=== PATIENT | male | born 1970 | race Caucasian/White ===

== ENCOUNTER 2021-10-30 06:49 | Day surgery (SDC) | payer BC ==
[2021-10-30] VITALS (81 sets, daily range): BP systolic 118–147; BP diastolic 76–87; PULSE 46–81; TEMP 98.2; O2SAT 89–99
[~2021-10-30] VITALS: Ht 177.8 cm; Wt 98.2 kg
[2021-10-30 07:27] LABS: BASO # 0.1 K/mm3 (0.0-0.2); BASO % 0.9 % (0.0-2.0); EOS # 0.3 K/mm3 (0.0-0.7); EOS % 6.3 % (0.0-4.0); GRAN # 2.6 K/mm3 (1.4-6.5); GRAN % 48.7 % (42.2-75.2); HEMATOCRIT 44.6 % (42.0-52.0); HEMOGLOBIN 14.9 g/dl (13.5-18.0); LYMPH # 1.8 K/mm3 (1.2-3.4); MEAN CELL VOLUME 98 fl (80.0-100.0); MEAN CORPUSCULAR HEMOGLOBIN 33 pg (27-31); MEAN CORPUSCULAR HGB CONC 33 g/dl (33.0-37.0); MEAN PLATELET VOLUME 9.1 fl (7.4-10.4); MONO # 0.5 K/mm3 (0.1-0.6); MONO % 9.9 % (1.7-9.3); PLATELET COUNT 305 K/mm3 (130-400); RED BLOOD COUNT 4.54 M/mm3 (4.20-5.60); REDCELL DISTRIBUTION WIDTH-CV 13.1 % (11.5-14.5)
[2021-10-30 07:35] LABS: PROTHROMBIN TIME 11.2 SECONDS (9.7-12.8)
[2021-10-30 07:41] LABS: CREATININE, serum 1.01 mg/dL (0.72-1.25); POTASSIUM 4.2 mmol/L (3.5-4.5)
[2021-10-30] MEDS ORDERED: ASPIRIN E.C. 8181 MG PO (07:47)
[2021-10-30] MEDS ORDERED: PRINIVIL5 MG PO (07:47)
--- NOTE | 2021-10-30 08:41 | NUR ---
SEE MERGE DOCUMENTATION FOR MEDICATION ADMINISTRATOIN AND INTRA/POST PROCEDURE SEDATION ASSESSMENTS.
[2021-10-30] MEDS ORDERED: CEPHALEXIN500 M1 PO (10:42)
--- NOTE | 2021-10-30 13:00 | NUR ---
Discharge education given to pt, pt verbalizes understanding. pt exits via wheelchair with this nurse.
== END 2021-10-30 13:00 | disposition home or self-care (01) ==
LOC: COL.CAR 06:49
PROVIDERS: Internal Medicine Cardiovascular Disease
DX: Z45.02 Encounter for adjustment and management of automatic implantable cardiac defibrillator (principal); I42.9 Cardiomyopathy, unspecified
CPT/HCPCS: C1882; J0690; J2250; J3010